=== PATIENT | female | born 1945 | race Caucasian/White ===

== ENCOUNTER 2016-07-22 11:19 | Emergency (ER) | payer OTHER ==
--- NOTE | ~2016-07-22 | CR243 ---
[facility] A Service of [facility] RADIOLOGY TEXT RESULTS PATIENT: PAULA CARBAJAL LOCATION: SED : 41 UNIT #: [id number] AGE: [address]: Jad Abraham MD SEX: F ORDER DR: [id number] [place] [id number] E MR#: [id number] Acc #: [id number] NAME: PAULA CARBAJAL : 1945 SEX: F STUDY DATE/TIME: 07/22/2016 14:14 UNIT: SED ROOM: STUDY DESCRIPTION: CR Thoracic Spine 3 Views Attending Physician: Jad Abraham M.D. Ordering Physician: Jad Abraham M.D. Primary Care Physician: Sayda Pierson M.D. MEDICAL IMAGING REPORT This report is preliminary unless electronic signature is present. EXAM Thoracic spine series 07/22/2016 HISTORY Fell, passed out, mid back pain TECHNIQUE AP, lateral, swimmers views thoracic spine presented COMPARISON PA and lateral radiographs of the chest dated 04/08/2014 FINDINGS Status post left shoulder arthroplasty. The thoracic spine shows a very mild scoliosis very slightly convex to the right in the mid thoracic spine and to the left in the lower thoracic spine. There is a chronic mild anterior wedge compression deformity of the T11 vertebral body. Unchanged from 2015. Generalized narrowing of intervertebral disc spaces. There is no evidence of acute traumatic bony abnormality. Multilevel osteophyte formations. Visualized ribs intact. Central lung zones clear. On the swimmer's view, there is minimal perhaps 1 mm anterolisthesis C4 on C5 likely degenerative in nature. Disc space narrowing C5-C6, C6-C7. Visualized bowel gas pattern normal. Prior cholecystectomy. Dictated by... Obed Wong M.D. THIS IS AN ELECTRONICALLY VERIFIED REPORT Obed Wong M.D. at 07/23/2016 5:16 PM KIMMY/og TD: 07/22/2016 21:11 [facility] A Service of [facility] RADIOLOGY TEXT RESULTS PATIENT: PAULA CARBAJAL LOCATION: [facility] #: [id number] : 43 UNIT #: [id number] AGE: [address]: Jad Abraham MD SEX: F ORDER DR: JOB #: [id number] MEDICAL IMAGING REPORT Page 1 of 1
--- NOTE | ~2016-07-22 | CR63 ---
[facility] A Service [facility] RADIOLOGY TEXT RESULTS PATIENT: PAULA CARBAJAL LOCATION: SED : 43 UNIT #: [id number] AGE: [address]: Jad Abraham MD SEX: F ORDER DR: [id number] [place] [id number] E MR#: [id number] Acc #: [id number] NAME: PAULA CARBAJAL : 1945 SEX: F STUDY DATE/TIME: 07/22/2016 14:14 UNIT: SED ROOM: STUDY DESCRIPTION: CR Chest 2 View Attending Physician: Jad Abraham M.D. Ordering Physician: Jad Abraham M.D. Primary Care Physician: Sayda Pierson M.D. MEDICAL IMAGING REPORT This report is preliminary unless electronic signature is present. EXAM 2 views chest 07/22/2016. HISTORY Fall; passed out today; cough, mid-back pain. TECHNIQUE PA and lateral radiographs of the chest are presented. COMPARISON 04/08/2014. FINDINGS Status post left shoulder arthroplasty. Degenerative changes in the spine. Chronic anterior wedge compression deformity at what is probably the T11 vertebral body. No change. No acute-appearing bony abnormality. The heart and mediastinum are normal in size and contour. The lungs are well inflated. There is no evidence of acute infectious or inflammatory disease. No pleural effusion or pneumothorax. Status post cholecystectomy. Visualized bowel gas pattern normal. Dictated by... Obed Wong M.D. THIS IS AN ELECTRONICALLY VERIFIED REPORT Obed Wong M.D. at 07/23/2016 5:16 PM KIMMY/mariely TD: 07/22/2016 19:24 JOB #: [id number] [facility] A Service [facility] RADIOLOGY TEXT RESULTS PATIENT: PAULA CARBAJAL LOCATION: SED : 41 UNIT #: [id number] AGE: [address]: Jad Abraham MD SEX: F ORDER DR: MEDICAL IMAGING REPORT Page 1 of 1
--- NOTE | ~2016-07-22 | EKG ---
PATIENT: PAULA CARBAJAL UNIT #: [id number] Ventricular Rate: 72 BPM Atrial Rate: 72 BPM P-R Interval: 162 ms QRS Duration: 92 ms Q-T Interval: 420 ms QTC Calculation(Bezet): 459 ms P Playas: 60 degrees Calculated R Playas: -8 degrees Calculated T Playas: 21 degrees Diagnosis Line: Normal sinus rhythm Diagnosis Line: Normal ECG Diagnosis Line: When compared with ECG of 01-FEB-2012 15:48, Diagnosis Line: No significant change was found Diagnosis Line: Confirmed by VARINDER PEDROZA MD ([id number]) on Diagnosis Line: 07/31/2016 8:27:31 AM INTERPRETING MD: YOVANY MARC
--- NOTE | ~2016-07-22 | CR181 ---
[facility] A Service of [facility] RADIOLOGY TEXT RESULTS PATIENT: PAULA CARBAJAL LOCATION: SED : 43 UNIT #: [id number] AGE: [address]: Jad Abraham MD SEX: F ORDER DR: [id number] [place] [id number] E MR#: [id number] Acc #: [id number] NAME: PAULA CARBAJAL : 1945 SEX: F STUDY DATE/TIME: 07/22/2016 14:14 UNIT: SED ROOM: STUDY DESCRIPTION: CR Lumbar Spine 2 or 3 Views Attending Physician: Jad Abraham M.D. Ordering Physician: Jad Abraham M.D. Primary Care Physician: Sayda Pierson M.D. MEDICAL IMAGING REPORT This report is preliminary unless electronic signature is present. EXAM Two views of the lumbar spine. DATE 07/22/2016 HISTORY Mid back pain today, fell and passed out. COMPARISON None FINDINGS No acute lumbar spine fracture or subluxation is seen. There is advanced diminished disc height at L5-S1 with endplate sclerosis. Facet arthropathy is thought to be present at L4-5 and L5-S1. There is also mild diminished disc height at L4-5, L2-3. Anterior osteophyte formation is present at L2. Chronic-appearing compression deformity of T11 unchanged from the previous lateral chest radiograph of 04/08/2014. IMPRESSION 1. No acute lumbar spine fracture or subluxation. 2. Chronic T11 compression fracture unchanged from 04/08/2014. 3. Degenerative disc endplate changes greatest at L5-S1. Lower lumbar facet arthropathy. Dictated by... Charlotte Brennan M.D. [facility] A Service of [facility] RADIOLOGY TEXT RESULTS PATIENT: PAULA CARBAJAL LOCATION: SED : 41 UNIT #: [id number] AGE: [address]: Jad Abraham MD SEX: F ORDER DR: THIS IS AN ELECTRONICALLY VERIFIED REPORT Charlotte Brennan M.D. at 07/23/2016 8:48 AM SHRUTHI/tulio TD: 07/22/2016 16:58 JOB #: [id number] MEDICAL IMAGING REPORT Page 1 of 1
[~2016-07-22 11:19] MED LIST: ASPIRIN PO; ASPIRINEC PO; BACTRIM DS TABL1 TA1 PO; BACTROBAN22 GM TP; DEMEROL50 MG PO; FLEXERIL10 MG PO; LANSOPRAZOLE PO; LASIX PO; MICRO-K PO; NASONEX17 GM; NEURONTIN PO; NEXIUM PO; PHENERGAN25 MG PO; PLENDIL PO; POTASSIUM CHLO10 ME1 PO; PRILOSEC PO; SYMBICORT INH; SYNTHROID PO; TOBRADEX EYE DRO5 ML OP; TUSSIONEX PENN473 ML PO; VIT D PO; VITAMIN D1000 UNI1 PO; XOPENEX1.25 MG/0. NEB
[2016-07-22] MEDS ORDERED: ZOCOR PO (11:27)
[2016-07-22 13:27] LABS: POC - CKMB <1.0 ng/mL (0.0-7.9); POC - TROPONIN <0.05 ng/mL (<=0.05)
[2016-07-22 13:30] LABS: BASOPHIL# 0.1 X10e3 (0-0.3); BASOPHIL% 0.7 % (0-2.5); EOSINOPHIL# 0.2 X10e3 (0-0.7); EOSINOPHIL% 2.7 % (0.0-7.0); HEMATOCRIT 43.5 % (35.0-45.0); HEMOGLOBIN 14.5 gm/dL (12.0-16.0); LYMPHOCYTE# 2.9 X10e3 (1.0-3.5); LYMPHOCYTE% 33.8 % (17.0-45.0); MEAN CELL VOLUME 89.7 FL (83-96); MEAN CORPUSCULAR HGB CONC 33.4 g/dL (30-36); MEAN PLATELET VOLUME 8.1 FL (6.5-11.5); MONOCYTE# 0.5 X10e3 (0-1.0); MONOCYTE% 5.5 % (3.0-12.0); NEUTROPHIL# 4.9 X10e3 (1.5-7.1); NEUTROPHIL% 57.3 % (40-75); PLATELET COUNT 249 X10e3 (140-420); RED BLOOD COUNT 4.85 X10e (3.90-5.30); RED CELL DISTRIBUTION WIDTH 13.3 % (11.0-15.5); WHITE BLOOD COUNT 8.6 X10e3 (4.0-10.5)
[2016-07-22 13:40] LABS: DIFF IND NO
[2016-07-22 13:52] LABS: CALCIUM SERUM 9.2 mg/dL (8.4-10.2); GLOM FILT RATE Estimated 55.9 mL/min (>60); POTASSIUM 3.7 mmol/L (3.5-5.1)
[2016-07-22 14:50] LABS: URINE SOURCE CLEAN CATCH
[2016-07-22 14:53] LABS: URINE APPEARANCE CLEAR; URINE BILIRUBIN NEG (NEG); URINE BLOOD NEG (NEG); URINE COLOR YELLOW; URINE GLUCOSE NEG (NORM); URINE KETONE NEG (NEG); URINE LEUKOCYTE ESTERASE NEG (NEG); URINE NITRATE NEG (NEG); URINE PROTEIN NEG (NEG); URINE SPECIFIC GRAVITY 1.025 (1.003-1.035); URINE UROBILINOGEN 0.2 MG/DL (NORM)
[2016-07-22 14:59] LABS: MICRO INDICATED? NO
[2016-07-22 15:03] LABS: AMPHETAMINE NEG (NEG); BARBITURATES NEG (NEG); BENZODIAZEPINES NEG (NEG); COCAINE NEG (NEG); MARIJUANA NEG (NEG); OPIATES NEG (NEG); TRICYCLIC ANTIDEPRESSANTS NEG (NEG); U METHADONE NEG (NEG)
== END 2016-07-22 16:23 | disposition home or self-care (01) ==
LOC: SED 11:19
PROVIDERS: Emergency Medicine
DX: R55 Syncope and collapse (principal); J06.9 Acute upper respiratory infection, unspecified; Z90.710 Acquired absence of both cervix and uterus; Z88.5 Allergy status to narcotic agent; Z88.8 Allergy status to other drugs, medicaments and biological substances; Z79.899 Other long term (current) drug therapy
CPT/HCPCS: 36415; 71020; 72072; 72100; 80048; 80307; 81003; 82553; 84484; 85025; 93005; 99284; G0480